=== PATIENT | female | born 1940 | race Caucasian/White ===

== ENCOUNTER → 2018-08-16 | Outpatient (CLI) | payer MEDICARE, BC ==
--- NOTE | 2018-08-17 11:02 | MM ---
Reason for exam: screening (asymptomatic). Last mammogram was performed 2 years and 1 month ago. History: Patient is postmenopausal. MG discontinued stereo core RT of the right breast, August 05, 2016. Physical Findings: A clinical breast exam by your physician is recommended on an annual basis and results should be correlated with mammographic findings. MG 3D Screening Mammo W/Cad Bilateral CC and MLO view(s) were taken. Prior study comparison: July 24, 2016, right breast ultrasound, performed at [facility]. July 14, 2016, left breast mammogram, performed at [facility]. There are scattered fibroglandular densities. Benign appearing bilateral calcifications. No suspicious abnormality on left breast. Right upper outer quadrant architectural distortion at middle depth 3D MLO view 25/54 and CC 23/48. ASSESSMENT: Incomplete: need additional imaging evaluation, BI-RAD 0 RECOMMENDATION: Special view mammogram of the right breast. If lesion persists on supplemental views, image directed ultrasound is recommended. [facility] will attempt to contact patient to return for supplemental views and ultrasound if indicated.
== END | disposition home or self-care (01) ==
LOC: RADMAMWWP 14:56
PROVIDERS: ATTEND Family Medicine
DX: Z12.31 Encounter for screening mammogram for malignant neoplasm of breast (principal)
CPT/HCPCS: 77063; 77067

== ENCOUNTER → 2018-09-02 | Outpatient (CLI) | payer MEDICARE, BC ==
--- NOTE | 2018-09-02 14:29 | BD ---
EXAMINATION TYPE: Axial Bone Density DATE OF EXAM: 09/02/2018 COMPARISON: NONE CLINICAL HISTORY: 78 YR OLD FEMALE...ICD-10 CODE: Z78.0 ASYMPTOMATIC MENOPAUSAL STATE Height: 65 Weight: 177 FRAX RISK QUESTIONS: NOTHING TO NOTE HERE RISK FACTORS HISTORY OF: HX OF LT ANKLE FX....BEFORE AGE OF 52 Active: YES, [place] Postmenopausal woman: YES AT AGE 55 MEDICATIONS: Additional Medications: NOTHING TO NOTE Additional History: NOTHING TO NOTE EXAM MEASUREMENTS: Bone mineral densitometry was performed using the [employer] System. Bone mineral density as measured about the Lumbar spine is: ----- L1-L4(G/cm2): 1.454 T Score Values are as follows: ----- L1: 1.5 ----- L2: 3.0 ----- L3: 2.3 ----- L4: 2.0 ----- L1-L4: 2.3 Bone mineral density FIRST BONE DENSITY TEST......BASELINE STUDY Bone mineral density about the R hip (g/cm2): 0.909 Bone mineral density about the L hip (g/cm2): 0.903 T Score values are as follows: -----R Neck: -1.3 -----L Neck: -1.4 -----R Total: -0.8 -----L Total: -0.8 Bone mineral density BASELINE STUDY FRAX%s: THERE IS A 11.6% CHANCE FOR A MAJOR OSTEOPOROTIC FX AND A 2.3% FOR HIP FX...PROBABILITY OF FX IN 10 YRS TIME IMPRESSION: No evidence for osteoporosis or osteopenia at this time. NOTE: T-SCORE=SD OF THE YOUNG ADULT MEAN.
--- NOTE | 2018-09-03 10:54 | MM ---
Reason for exam: additional evaluation requested from abnormal screening. Last mammogram was performed 1 month ago. History: Patient is postmenopausal. MG discontinued stereo core RT of the right breast, August 05, 2016. Physical Findings: Nurse did not find any significant physical abnormalities on exam. MG 3D Work Up W/Cad RT Spot compression CC, spot compression MLO, and LM view(s) were taken of the right breast. Prior study comparison: August 16, 2018, bilateral MG 3d screening mammo w/cad. July 14, 2016, left breast mammogram, performed at [place]. Areas of spiculation persists on additional views. Recommend 3 D guided stereotactic core biopsy. These results were verbally communicated with the patient and result sheet given to the patient on 09/02/18. ASSESSMENT: Suspicious, BI-RAD 4 RECOMMENDATION: Stereotactic core biopsy of the right breast. Called Dr. Carrasquillo with mammographic findings, office to contact patient to set up biopsy. PRELIMINARY REPORT CALLED AND FAXED TO DR. CARRASQUILLO ON 09/03/18.
--- NOTE | 2018-09-03 10:55 | USB ---
Reason for exam: additional evaluation requested from abnormal screening. History: Patient is postmenopausal. MG discontinued stereo core RT of the right breast, August 05, 2016. Physical Findings: Nurse did not find any significant physical abnormalities on exam. US Breast Workup Limited RT Right limited breast ultrasound including focal area of concern, retroareolar and axilla demonstrates no abnormality seen. Additional views recommended. These results were verbally communicated with the patient and result sheet given to the patient on 09/02/18. ASSESSMENT: Incomplete: need additional imaging evaluation, BI-RAD 0 RECOMMENDATION: Special view mammogram of the right breast.
== END | disposition home or self-care (01) ==
LOC: RADBDWWP 12:09
PROVIDERS: ATTEND Family Medicine
DX: R92.8 Other abnormal and inconclusive findings on diagnostic imaging of breast (principal); E28.39 Other primary ovarian failure; Z78.0 Asymptomatic menopausal state
CPT/HCPCS: 77080; 77065; 76642; G0279; 77061